=== PATIENT | male | born 1965 | race Caucasian/White ===

== ENCOUNTER 2017-02-18 14:40 | Emergency (ER) | payer SELFPAY ==
[2017-02-18 15:07] VITALS: TEMP 97.9
--- NOTE | 2017-02-18 15:49 | ED.PDOC ---
History of Present Illness - General Chief Complaint: Respiratory Problem Stated Complaint: flu like symp Time Seen by Provider: 02/18/17 14:42 Source: patient Exam Limitations: no limitations Additional Information: Darnell Flores 51 y/o male with history of cad stated that he started having nasal congestion 3 days ago with worsening productive cough no chest pains but with body aches no sob. Continue to smoke. - History of Present Illness Timing/Duration: other - 3 days ag Cough Quality/Degree: moderate, productive cough Possible Cause: occasional episodes, allergen exposure Improving Factors: nothing Worsening Factors: nothing Associated Symptoms: cough - nasal congestion Respiratory Risk Factors: no cause identified Allergies/Adverse Reactions: Allergies Morphine Allergy (Verified 02/18/17 15:01) Home Medications: Ambulatory Orders Amoxicillin [Amoxil] 500 mg PO TID #30 cap 08/19/15 Aspirin 08/19/15 Fluticasone Prop 0.05% Nasal [Flonase Nasal [place]] 1 spray BNAS DAILY #1 bottle 08/19/15 Lipitor 08/19/15 Plavix 08/19/15 Albuterol Inhaler [Ventolin Hfa Inhaler] 0 gm INH Q6HR PRN #1 inh 02/18/17 Ciprofloxacin HCl 500 mg PO BID #7 tab 02/18/17 Dextromet/Guaifenesin 600/30 T [Mucinex Dm 600/30MG] 1 tab PO BID #30 tab Ipratropium [place] (Nasal) [Ipratropium [place]] 0.06 % NA TID PRN #1 spr 02/18 Review of Systems - Review of Systems Constitutional: States: malaise EENTM: States: see HPI, nose congestion Respiratory: States: see HPI, cough Cardiology: States: no symptoms reported Gastrointestinal/Abdominal: States: no symptoms reported Genitourinary: States: no symptoms reported Musculoskeletal: States: no symptoms reported Skin: States: no symptoms reported Neurological: States: no symptoms reported Endocrine: States: no symptoms reported Hematologic/Lymphatic: States: no symptoms reported Past Medical History (General) - Patient Medical History Hx Cardiac Disorders: Yes Hx Congestive Heart Failure: No Hx Diabetes: Yes Surgical History: appendectomy, coronary bypass surgery, other - hernia repair, vein strippings - Vaccination History Hx Tetanus, Diphtheria Vaccination: No Hx Influenza Vaccination: Yes Hx Pneumococcal Vaccination: No Immunizations Up to Date: Yes - Social History Hx Tobacco Use: Yes Years Tobacco Use: 30 Cigarettes Packs Per Day: 30 Hx Alcohol Use: No Hx Substance Use: No Hx Substance Use Treatment: No Hx Depression: No Hx Physical Abuse: No Hx Emotional Abuse: No Hx Suspected Abuse: No - Activities of Daily Living Patient Lives Alone: No - - Female History Patient : No Family Medical History - Family History Mother Living Status: Still Living Hx Family Congestive Heart Failure: Yes Hx Family Hypertension: Yes Hx Cardiac Disease: Yes Hx Family Cancer: Yes - lung-sister Physical Exam - Physical Exam General Appearance: Alert, No apparent distress Eye Exam: bilateral normal ENT Exam: normal ENT inspection, hearing grossly normal, TMs normal, pharynx normal, nasal congestion - right nostril, nasal drainage Neck: non-tender, full range of motion Respiratory: chest non-tender, lungs clear, normal breath sounds, no respiratory distress Cardiovascular/Chest: normal peripheral pulses, regular rate, rhythm, no edema, no gallop, no murmur Gastrointestinal/Abdominal: normal bowel sounds, non tender, soft, no organomegaly Extremity: normal range of motion, non-tender, normal inspection Neurologic: no motor/sensory deficits, alert, normal mood/affect, oriented x 3 Skin Exam: normal color, warm/dry Lymphatic: no adenopathy Progress - EKG/XRAY/CT XRAY: chest - no acute abnormality noted Departure - Departure Clinical Impression: Acute bronchospasm Sinusitis Qualifiers: Sinusitis location: unspecified location Chronicity: acute Recurrence: not specified Qualified Code(s): J01.90 - Acute sinusitis, unspecified Time of Disposition: 16:42 Disposition: Discharge to Home or Self Care Condition: Good Departure Forms: ED Discharge - Pt. Copy, Patient Portal Self Enrollment Instructions: DI for Sinusitis, Quitting Smoking After a Heart Attack, Why It Is Important to Quit Smoking If You Have Heart Failure, Tips to Help You Stop Smoking, Serious Ways to Stop Smoking Prescriptions: Albuterol Inhaler [Ventolin Hfa Inhaler] 0 gm INH Q6HR PRN #1 inh PRN Reason: Cough Ciprofloxacin HCl 500 mg PO BID #7 tab Dextromet/Guaifenesin 600/30 T [Mucinex Dm 600/30MG] 1 tab PO BID #30 tab Ipratropium [place] (Nasal) [Ipratropium [place]] 0.06 % NA TID PRN #1 spr PRN Reason: Nasal Congestion Home Medications: Ambulatory Orders Amoxicillin [Amoxil] 500 mg PO TID #30 cap 08/19/15 Aspirin 08/19/15 Fluticasone Prop 0.05% Nasal [Flonase Nasal [place]] 1 spray BNAS DAILY #1 bottle 08/19/15 Lipitor 08/19/15 Plavix 08/19/15 Albuterol Inhaler [Ventolin Hfa Inhaler] 0 gm INH Q6HR PRN #1 inh 02/18/17 Ciprofloxacin HCl 500 mg PO BID #7 tab 02/18/17 Dextromet/Guaifenesin 600/30 T [Mucinex Dm 600/30MG] 1 tab PO BID #30 tab Ipratropium [place] (Nasal) [Ipratropium [place]] 0.06 % NA TID PRN #1 spr 02/18 Additional Instructions: NEED TO SIGN UP WITH PRIMARY MD
[2017-02-18] MEDS ORDERED: DEXAMETHASONE INJ 4 MG/ML VIAL IM ONE (15:56)
--- NOTE | 2017-02-18 16:16 | RAD ---
EXAM DESCRIPTION: Chest,1 View CLINICAL HISTORY: 51 years Male cough COMPARISON: 02/05/2014. FINDINGS: The cardiomediastinal silhouette appears unremarkable. Changes from previous sternotomy new since the previous study. No consolidating infiltrates or pleural effusions. No pneumothorax. IMPRESSION: No acute abnormality is identified. Electronically signed by: Nehemias Cerna MD 02/18/2017 4:15 PM CDT
[2017-02-18 17:08] VITALS: BP 122/74; O2SAT 96
== END 2017-02-18 17:06 | disposition home or self-care (01) ==
LOC: ER 14:40
DX: J98.01 Acute bronchospasm (principal); J01.90 Acute sinusitis, unspecified; E11.9 Type 2 diabetes mellitus without complications; F17.210 Nicotine dependence, cigarettes, uncomplicated; I25.10 Atherosclerotic heart disease of native coronary artery without angina pectoris; Z80.1 Family history of malignant neoplasm of trachea, bronchus and lung; Z79.82 Long term (current) use of aspirin; Z79.02 Long term (current) use of antithrombotics/antiplatelets; Z79.899 Other long term (current) drug therapy; Z88.6 Allergy status to analgesic agent; Z95.1 Presence of aortocoronary bypass graft
CPT/HCPCS: 71010; J1100

== ENCOUNTER 2019-11-14 22:02 | Emergency (ER) | payer SELFPAY ==
[2019-11-14] MEDS ORDERED: CHLORHEXIDINE GLUCONATE 4 % 15 ML UD TOP ONE (22:12)
[2019-11-14] MEDS ORDERED: KETOROLAC TROMETHAMINE INJ 60 MG/2 ML VIAL IM ONE (22:13)
[2019-11-14] MEDS ORDERED: traMADol HCL 50 MG TAB PO ONE (22:13)
[2019-11-14] MEDS ORDERED: TETANUS,DIPHTHERIA,PERTUSSIS 1 EA SYG IM ONE (22:14)
--- NOTE | 2019-11-14 22:17 | ED.PDOC ---
History of Present Illness - General Chief Complaint: Skin/Abrasion/Tear Time Seen by Provider: 11/14/19 22:04 Source: patient Exam Limitations: no limitations - History of Present Illness Initial Comments: 54-year-old male presents to the emergency department complaining of right hand pain and laceration. He is a otr owner operator truck driver and was working with a broken spring under the aldrich of his truck when the spring snapped and punctured the skin on the palm of his right hand. He reports that he pulled the portion of the spring out and since that time has been having pain in the hand. He is right-hand dom inant and needs the hand to shift the gears on his truck and every time he does this a causes pain. He has been taking Tylenol with temporary improvement. He is unsure when his last tetanus shot is. He denies any other injuries or complaints at this time. Pain is currently rated as 10/10 in severity and is worsened with palpation and movement. Allergies/Adverse Reactions: Allergies NO KNOWN ALLERGY Allergy (Verified 11/14/19 22:18) Home Medications: Ambulatory Orders RX: Amoxicillin [Amoxil] 1,000 mg PO BID #30 cap 06/16/18 RX: predniSONE 20 mg PO DAILY 7 Days #7 tab 06/16/18 Amoxicillin & Pot Clavulanate [Augmentin Tab] 875 mg PO BID 10 Days tab 11/14/19 RX: Tramadol HCl 50 mg PO Q6H PRN #15 tab 11/14/19 Review of Systems - Review of Systems Constitutional: Denies: chills, fever EENTM: Denies: nose congestion, throat pain Respiratory: Denies: cough, short of breath Cardiology: Denies: chest pain, palpitations Gastrointestinal/Abdominal: Denies: diarrhea, nausea, vomiting Musculoskeletal: States: joint pain, muscle pain - R hand Skin: States: other - puncture wound R palm Neurological: Denies: numbness, weakness Past Medical History (General) - Patient Medical History Hx Stroke: No Hx Cardiac Disorders: Yes Hx Congestive Heart Failure: No Hx Diabetes: No - Vaccination History Hx Tetanus, Diphtheria Vaccination: No Hx Influenza Vaccination: No Hx Pneumococcal Vaccination: No - Social History Hx Tobacco Use: Yes - 2-2.5 ppd Hx Alcohol Use: No Hx Substance Use: No Hx Substance Use Treatment: No Hx Depression: No Hx Physical Abuse: No Hx Emotional Abuse: No Hx Suspected Abuse: No - Female History Patient : No Family Medical History - Family History Mother Living Status: Still Living Hx Family Congestive Heart Failure: Yes Hx Family Hypertension: Yes Hx Cardiac Disease: Yes Hx Family Cancer: Yes - lung-sister Physical Exam - Physical Exam General Appearance: Alert, No apparent distress, Well Developed, Well Nourished Eye Exam: bilateral normal Ears, Nose, Throat: normal ENT inspection, normal pharynx Neck: supple, normal inspection Respiratory: lungs clear, normal breath sounds Cardiovascular/Chest: normal peripheral pulses, regular rate, rhythm Peripheral Pulses: radial,right: 2+, radial,left: 2+ Gastrointestinal/Abdominal: non tender, soft Extremity: normal range of motion - painful ROM R hand, non-tender - TTP over R thenar eminence Neurologic: alert, normal mood/affect, oriented x 3, other - Moves all extremities without focal deficits Skin Exam: normal color, warm/dry, other - superficial abrasion dorsal aspect R hand over the 1st metacarpal. 0.25 cm puncture wound to R thenar eminence. No active bleeding Comments: Vital Signs - 24 hr 11/14/19 22:07 Temperature 97.6 F Pulse Rate [ 67 monitor] Respiratory 20 Rate Blood Pressure 136/100 [Left Arm] O2 Sat by Pulse 95 Oximetry Progress - Progress Progress: 11/14/19 22:30 The patient was seen and evaluated in the emergency department. A right hand x- ray was obtained and was negative for any acute fracture or foreign body. The patient's wounds were cleaned with saline and Hibiclens and he was given tramadol and Toradol for pain. We discussed that I do not recommend closure as the wound is more than 10 hours old as well as it being a puncture wound this increases the chance of infection and I recommended letting the wound heal by secondary intention. The patient has voiced understanding of this. He was given follow-up instructions with Dr. Carmona for orthopedic surgery and instructed to keep the wound clean and dry and given warning signs for infection. Because instructed to return to the emergency department immediately for any significant worsening of pain, signs of infection or any other concerning signs or symptoms. The patient and his at the bedside who voice understanding and agree with the treatment plan. - Results/Orders Results/Orders: 22:30 Right hand x-ray read by myself shows no acute fracture or radiopaque foreign body. R hand XR: IMPRESSION: Soft tissue swelling of the second digit is present. No underlying acute bony abnormality. Electronically signed by: Selma Duvall MD 11/14/2019 10:45 PM [facility] Departure - Departure Clinical Impression: Puncture wound of hand, right, Right hand pain Time of Disposition: 22:33 Disposition: Discharge to Home or Self Care Condition: Good Departure Forms: ED Discharge - Pt. Copy, Patient Portal Self Enrollment Instructions: Wound Care (DC) Referrals: Ramses Carmona MD [Active Staff] - 1-5 Days Prescriptions: Amoxicillin & Pot Clavulanate [Augmentin Tab] 875 mg PO BID 10 Days tab RX: Tramadol HCl 50 mg PO Q6H PRN #15 tab PRN Reason: Pain Home Medications: Ambulatory Orders RX: Amoxicillin [Amoxil] 1,000 mg PO BID #30 cap 06/16/18 RX: predniSONE 20 mg PO DAILY 7 Days #7 tab 06/16/18 Amoxicillin & Pot Clavulanate [Augmentin Tab] 875 mg PO BID 10 Days tab 11/14/19 RX: Tramadol HCl 50 mg PO Q6H PRN #15 tab 11/14/19 Additional Instructions: Take medications as directed. Clean wound daily with soap and water and keep dressed. Call Dr. Carmona for orthopedic surgery to schedule a follow-up appointment as soon as possible. Return to the emergency department immediately for any significant worsening pain, signs of infection or other concerns.
[2019-11-14 22:19] VITALS: TEMP 97.6
[2019-11-14] MEDS ORDERED: NEOMYCIN-BACITRACIN-POLYMYXIN 0.9 GM UD TOP ONE (22:29)
[2019-11-14 22:35] VITALS: BP 134/81; O2SAT 96
--- NOTE | 2019-11-14 22:46 | RAD ---
EXAM: XR Right Hand Complete, 3 or More Views CLINICAL HISTORY: The patient is 54 years old and is Male; injury/pain TECHNIQUE: Frontal, lateral and oblique views of the right hand. COMPARISON: No relevant prior studies available. FINDINGS: BONES/JOINTS: Minimal degenerative change of the second digit is present. No acute fracture. No dislocation. SOFT TISSUES: Soft tissue swelling of the second digit is present. No radiopaque foreign body. IMPRESSION: Soft tissue swelling of the second digit is present. No underlying acute bony abnormality. Electronically signed by: Selma Duvall MD 11/14/2019 10:45 PM [facility]
== END 2019-11-14 22:37 | disposition home or self-care (01) ==
LOC: ER 22:02
DX: S61.431A Puncture wound without foreign body of right hand, initial encounter (principal); I51.9 Heart disease, unspecified; W45.8XXA Other foreign body or object entering through skin, initial encounter; Y99.0 Civilian activity done for income or pay; Y92.69 Other specified industrial and construction area as the place of occurrence of the external cause; Z87.891 Personal history of nicotine dependence
CPT/HCPCS: 73130; 90471; 90715; J1885

== ENCOUNTER 2019-11-17 22:31 | Observation (INO) | payer SELFPAY ==
[2019-11-17] MEDS ORDERED: ACETAMINOPHEN 500 MG TAB ONE (23:05)
[2019-11-17] MEDS ORDERED: PIPERACILLIN/TAZOBACTAM 3.375 GM VIAL IVPB ONE (23:06)
[2019-11-17] MEDS ORDERED: SODIUM CHLORIDE 0.9% 100ML 100 ML IVPB ONE (23:06)
[2019-11-17] MEDS ORDERED: VANCOMYCIN HCL INJ 1,000 MG VIAL IVPB ONE (23:07)
[2019-11-17] MEDS ORDERED: SODIUM CHLORIDE 0.9% 250ML 250 ML ONE (23:08)
[2019-11-17] MEDS ORDERED: SODIUM CHLORIDE 0.9% 1000ML 1,000 ML ONE (23:30)
--- NOTE | 2019-11-18 00:36 | ED.PDOC ---
History of Present Illness - General Chief Complaint: Upper Extremity Injury Stated Complaint: rt hand pain Time Seen by Provider: 11/18/19 00:31 - History of Present Illness Initial Comments: 54 yo M PMH CABG x 4 presents to ED at bedside c/o right hand pain worsening after puncture wound sustained on 11/14/19. Pt. seen and evaluated in this ED and sent home on antibiotics which patient has been taking. Pain has however worsened and he returned to the ED for re-evaluation. Denies new injury fever chills nausea vomiting diarrhea chest pain sob diaphoresis. No change in diet bowel or bladder but pain is disturbing rest. Admits smoking denies drinking admits FH HTN DM has no PMD for follow up no other c/o today. Allergies/Adverse Reactions: Allergies NO KNOWN ALLERGY Allergy (Verified 11/14/19 22:18) Home Medications: Ambulatory Orders Amoxicillin [Amoxil] 1,000 mg PO BID #30 cap 06/16/18 predniSONE 20 mg PO DAILY 7 Days #7 tab 06/16/18 Amoxicillin & Pot Clavulanate [Augmentin Tab] 875 mg PO BID 10 Days tab 11/14/19 Tramadol HCl 50 mg PO Q6H PRN #15 tab 11/14/19 Review of Systems - Review of Systems Constitutional: States: see HPI EENTM: States: see HPI Respiratory: States: see HPI Cardiology: States: see HPI Gastrointestinal/Abdominal: States: see HPI Genitourinary: States: see HPI Musculoskeletal: States: see HPI Skin: States: see HPI Neurological: States: see HPI Endocrine: States: see HPI Hematologic/Lymphatic: States: see HPI All other Systems: Reviewed and Negative Past Medical History (General) - Patient Medical History Hx Seizures: No Hx Stroke: No Hx Dementia: No Hx Asthma: No Hx of COPD: No Hx Cardiac Disorders: Yes Hx Congestive Heart Failure: No Hx Pacemaker: No Hx Hypertension: No Hx Thyroid Disease: No Hx Diabetes: No Hx Gastroesophageal Reflux: No Hx Renal Disease: No Hx Cancer: No Hx of HIV: No Hx Hepatitis C: No Hx MRSA: No - Vaccination History Hx Tetanus, Diphtheria Vaccination: No Hx Influenza Vaccination: No Hx Pneumococcal Vaccination: No - Social History Hx Tobacco Use: Yes - 2-2.5 ppd Hx Alcohol Use: No Hx Substance Use: No Hx Substance Use Treatment: No Hx Depression: No Hx Physical Abuse: No Hx Emotional Abuse: No Hx Suspected Abuse: No - Female History Patient : No Family Medical History - Family History Mother Living Status: Still Living Hx Family Congestive Heart Failure: Yes Hx Family Hypertension: Yes Hx Cardiac Disease: Yes Hx Family Cancer: Yes - lung-sister Physical Exam - Physical Exam General Appearance: No apparent distress Eyes, Ears, Nose, Throat Exam: normal ENT inspection Neck: non-tender, full range of motion Cardiovascular/Respiratory: regular rate, rhythm Abdominal Exam: non-tender, no organomegaly Back Exam: normal inspection Shoulder Exam: normal inspection Elbow/Forearm Exam: normal inspection Wrist Exam: normal inspection Hand Exam: infection - Right thenar eminence is tender warm indurated surrounding puncture wound, soft tissue tenderness, swelling Neuro/Tendon: normal motor functions, normal tendon functions, other - exam limited secondary to pain Mental Status: alert, oriented x 3 Skin Exam: other - tenderness erythema to right thenar eminance Progress - Progress Progress: A/P-R Hand Cellulitis, Puncture Wound-iv bolus tylenol cbc cmp esr crp xr hand CT Hand blood cultures zosyn vancomycin ADMIT failed outpatient antibiotics 11/18/19 00:32 Laboratory Tests 11/17/19 11/17/19 11/17/19 23:00 23:00 23:00 WBC 7.4 RBC 5.12 Hgb 15.6 Hct 45.3 MCV 88.4 MCH 30.4 MCHC 34.4 RDW 14.2 Plt Count 220 MPV 9.1 Absolute Neuts (auto) 2.40 Absolute Lymphs (auto) 3.80 H Absolute Monos (auto) 0.70 Absolute Eos (auto) 0.40 Absolute Basos (auto) 0.10 Neutrophils % 32.0 L Lymphocytes % 51.4 H Monocytes % 10.1 H Eosinophils % 5.4 H Basophils % 1.1 ESR 4 Sodium 138 Potassium 3.7 Chloride 101 Carbon Dioxide 28 Anion Gap 12.7 BUN 11 Creatinine 0.89 BUN/Creatinine Ratio 12.4 Random Glucose 117 H Serum Osmolality 276.1 Calcium 8.9 Total Bilirubin 0.5 AST 22 ALT 15 Alkaline Phosphatase 65 C-Reactive Protein 2.7 H Serum Total Protein 7.0 Albumin 4.2 Globulin 2.8 Albumin/Globulin Ratio 1.5 11/18/19 00:46 Reporting MD: Rico Loza Germination Worker date: Dictation date: EXAM DESCRIPTION: Hand,Right 3 Views CLINICAL HISTORY: 54 years Male, SPRING PUNCTURED HIS HAND, PAIN AROUND THUMB AREA PALMAR ASPECT COMPARISON: None. FINDINGS: No evidence for an acute fracture of the right hand. No dislocation. Surrounding soft tissues are unremarkable. No radiopaque foreign body. IMPRESSION: No evidence for an acute fracture of the right hand. Electronically signed by: Rico Loza MD 11/18/2019 12:02 AM [facility] CENTER MANAGER - [id number] Reporting MD: Blue Lujan Germination Worker date: Dictation date: CT right hand with contrast on 11/18/2019 CLINICAL INDICATION: Puncture wound at base of thumb, pain TECHNIQUE: Multiple axial images are obtained throughout the right hand and wrist following the administration of IV contrast. 90 mL of Optiray 320 contrast was measured intravenously. Sagittal and coronal reformatted images are also performed and reviewed. This exam was performed according to our departmental dose-optimization program, which includes automated exposure control, adjustment of the mA and/or kV according to patient size and/or use of iterative reconstruction technique. Total DLP is 232.27 mGy*cm. COMPARISON: Right hand x-ray from 11/14/2019 FINDINGS: There is no air in the soft tissues to suggest fasciitis. There is no radiopaque foreign body. Visualized joints are well aligned. There are no acute fracture lines. No fluid collection to suggest abscess is noted. No mass or pathologic contrast enhancement is noted. Cannot exclude mild cellulitis in the palmar subcutaneous tissues. Please correlate with physical exam. IMPRESSION: Cannot exclude a mild cellulitis in the palmar soft tissues of the hand with otherwise no acute abnormality. Electronically signed by: Blue Lujan 11/18/2019 12:54 AM COMMERCIAL CENTER MANAGER 11/18/19 01:11 Tobias Reynolds Accepts Departure - Departure Clinical Impression: Puncture wound, Cellulitis of right hand, Right hand pain Disposition: Admit Patient Condition: Fair Departure Forms: ED Discharge - Pt. Copy, Patient Portal Self Enrollment Instructions: DI for Arm Pain Home Medications: Ambulatory Orders Amoxicillin [Amoxil] 1,000 mg PO BID #30 cap 06/16/18 predniSONE 20 mg PO DAILY 7 Days #7 tab 06/16/18 Amoxicillin & Pot Clavulanate [Augmentin Tab] 875 mg PO BID 10 Days tab 11/14/19 Tramadol HCl 50 mg PO Q6H PRN #15 tab 11/14/19
--- NOTE | 2019-11-18 01:33 | HP ---
SUPERVISING PHYSICIAN: Ravi Valverde M.D. CHIEF COMPLAINT: Right hand pain. HISTORY OF PRESENT ILLNESS: This is a 54 year-old male who came to the Emergency Room with his with complaints of right hand pain. He was actually seen on the and he sustained a wound where he was working on his truck and some sort of spring penetrated his right hand. He was given some Augmentin as well as a tetanus shot and was discharged at that time. He returned to the Emergency Room because the pain worsened and he wanted it reevaluated. He had no complaints of chest pain, chills, fever, nausea, vomiting or diarrhea. He is unable to shift gears in his truck and the pain is much worse. The area is more reddened and swollen. In the Emergency Room, his initial vital signs were temperature 96.4, heart rate 70, blood pressure 145/90, respiratory rate 18, O2 saturation 94% on room air. Laboratory studies were done. WBCs were 7,400 with hemoglobin 15.6, hematocrit 45.3 and ESR was 4. Chemistries were all within normal limits except his C reactive protein was elevated at 2.7, glucose was slightly elevated at 117. Blood cultures were obtained and sent off. Hand x-ray from the showed soft tissue swelling in the second digit is present with no underlying acute abnormality. He was given some fluids in the Emergency Room as well as some vancomycin, Zosyn and Rocephin. He was given some Ketorolac for pain. He was placed in observation on the Medical/Surgical floor. PAST MEDICAL HISTORY: 1. Coronary artery disease. PAST SURGICAL HISTORY: 1. Coronary artery bypass graft times 4 vessels. 2. Appendectomy. 3. Hernia repair. 4. Varicose vein repair. 5. Right jaw surgery. 6. Surgery to his right leg due to trauma. OUTPATIENT MEDICATIONS: 1. Aspirin. ALLERGIES: FAMILY HISTORY: SOCIAL HISTORY: He lives in [place]. He drives a truck. He is . He smokes 1 to 2 packs of cigarettes daily. Denies any ETOH or illicit drug use. REVIEW OF SYSTEMS: GENERAL: Negative for fever, fatigue or weight changes. HEENT: Negative for sinus symptoms, ear pain, vision changes or sore throat. RESPIRATORY: Negative for wheezing, coughing or shortness of breath. CARDIAC: Negative for chest pain, palpitations or tachycardia. GASTROINTESTINAL: Negative for nausea, vomiting, diarrhea or constipation. MUSCULOSKELETAL: Positive for right hand pain. He is unable to open his hand. Negative for arthralgias or myalgias. SKIN: As per History of Present Illness. NEUROLOGIC: Negative for headaches, dizziness or seizures. PHYSICAL EXAMINATION: VITAL SIGNS: Temperature 97.4, heart rate 71, blood pressure 125/79, respiratory rate 16, O2 saturation 94% on room air. GENERAL: This is a 54 year-old male patient who is lying in his hospital bed. He is in no acute distress. HEENT: Normocephalic, atraumatic. Pupils are equal and reactive. Oropharynx is clear. NECK: Supple without mass. RESPIRATORY: Essentially clear to auscultation bilaterally. CHEST: There is equal rise and fall of the chest with inspiration and expiration. CARDIOVASCULAR: Regular rate and rhythm. GASTROINTESTINAL: Abdomen is soft, nondistended, nontender. Bowel sounds are positive. EXTREMITIES: He has swelling along the right thenar eminence. It is tender and warm. There is a small amount of induration around the puncture wound. There is no fluctuance or drainage noted. NEUROLOGIC: Awake, alert and oriented times three. It is difficult to assess the neurological status of his right hand due to pain. Cranial nerves II-XII are grossly intact as tested. LABORATORY: Labs and films are as per the History of Present Illness. ASSESSMENT: 1. Cellulitis of the right hand failed outpatient treatment with concerns for developing sepsis. 2. Coronary artery disease. 3. Poor medical compliance. 4. Tobacco abuse. PLAN: The patient has been placed in observation. We will continue on his vancomycin and Zosyn as previously ordered. I will discontinue his Rocephin. We discussed tobacco cessation and he refused. He also admitted that he does not have a primary care physician. He was not sure if he wanted to see someone in followup. I have given him some Tylenol #3 for pain. I will do lab and an x-ray in the morning. Will continue to monitor him closely and follow as needed. #[id number] [facility]
[2019-11-18] MEDS ORDERED: KETOROLAC TROMETHAMINE INJ 30 MG/ML VIAL IV ONE (02:25)
[2019-11-18] MEDS ORDERED: ACETAMINOPHEN 325 MG TAB PO PRN (02:26)
[2019-11-18] MEDS ORDERED: SODIUM CHLORIDE 0.9% (FLUSH) 10 ML SYG IV PRN (02:26)
[2019-11-18] MEDS ORDERED: MORPHINE SULFATE INJ 10 MG/ML VIAL IV PRN (02:26)
[2019-11-18] MEDS ORDERED: ONDANSETRON INJ 4 MG/2 ML VIAL IV PRN (02:26)
[2019-11-18] MEDS ORDERED: IV SET AND CAP CHANGE INJ INJ SCH (02:30)
[2019-11-18] MEDS ORDERED: SODIUM CHLORIDE 0.9% 250ML 250 ML ONE ×2 (08:53→19:03)
[2019-11-18] MEDS ORDERED: SODIUM CHL 0.9% 50ML MIN-BAG+ 50 ML IVPB ONE (08:53)
[2019-11-18] MEDS ORDERED: cefTRIAXone SODIUM 1 GM VIAL ONE (08:54)
[2019-11-18] MEDS ORDERED: VANCOMYCIN HCL INJ 1,000 MG VIAL IVPB ONE ×2 (08:54→19:03)
[2019-11-18] MEDS ORDERED: cefTRIAXone SODIUM 1 GM in SODIUM CHL 0.9% 50ML MIN-BAG+ 50 ML IVPB SCH (09:00)
[2019-11-18] MEDS ORDERED: VANCOMYCIN PER PHARMACY IVPB SCH (09:00)
[2019-11-18] MEDS: VANCOMYCIN HCL INJ 1,000 MG in SODIUM CHLORIDE 0.9% 250ML 250 ML IVPB SCH ×2 (09:47→20:55)
[2019-11-18] MEDS ORDERED: IBUPROFEN 400 MG TAB PO PRN (12:59)
[2019-11-18] MEDS: ACETAMINOPHEN W/COD #3 TAB 1 EA TAB PO PRN ×2 (13:42→17:45)
[2019-11-18] MEDS ORDERED: PIPERACILLIN/TAZOBACTAM 3.375 GM VIAL IVPB ONE ×2 (17:33→19:05)
[2019-11-18] MEDS ORDERED: SODIUM CHLORIDE 0.9% 100ML 100 ML IVPB ONE (17:33)
[2019-11-18] MEDS: PIPERACILLIN/TAZOBACTAM 3.375 GM in SODIUM CHLORIDE 0.9% 100ML 100 ML IVPB SCH ×2 (17:49→23:48)
[2019-11-18] MEDS ORDERED: SODIUM CHL 0.9% 100ML MINI-BAG 100 ML IVPB ONE (19:05)
[2019-11-19] MEDS ORDERED: SODIUM CHL 0.9% 100ML MINI-BAG 100 ML IVPB ONE (01:41)
[2019-11-19] MEDS ORDERED: PIPERACILLIN/TAZOBACTAM 3.375 GM VIAL IVPB ONE ×3 (01:45→16:37)
[2019-11-19] MEDS: PIPERACILLIN/TAZOBACTAM 3.375 GM in SODIUM CHLORIDE 0.9% 100ML 100 ML IVPB SCH ×3 (05:19→16:53)
[2019-11-19] MEDS ORDERED: SODIUM CHLORIDE 0.9% 250ML 250 ML ONE ×2 (09:26→16:38)
[2019-11-19] MEDS ORDERED: VANCOMYCIN HCL INJ 1,000 MG VIAL IVPB ONE ×2 (09:26→16:38)
[2019-11-19] MEDS: VANCOMYCIN HCL INJ 1,000 MG in SODIUM CHLORIDE 0.9% 250ML 250 ML IVPB SCH ×2 (09:30→17:59)
[2019-11-19] MEDS ORDERED: SODIUM CHLORIDE 0.9% 100ML 100 ML IVPB ONE ×2 (10:59→16:37)
[2019-11-19 18:09] VITALS: BP 130/70; TEMP 98.6; O2SAT 99
--- NOTE | 2019-11-19 21:48 | DS ---
SUPERVISING PHYSICIAN: Ravi Valverde M.D. DISCHARGE DIAGNOSIS: 1. Cellulitis of the right hand failed outpatient treatment with concerns for developing sepsis. 2. Coronary artery disease. 3. Poor medical compliance. 4. Tobacco abuse. HISTORY OF PRESENT ILLNESS: This is a 54 year-old male who came to the Emergency Room with his with complaints of right hand pain. He was actually seen on the and he sustained a wound where he was working on his truck and some sort of spring penetrated his right hand. He was given some Augmentin as well as a tetanus shot and was discharged at that time. He returned to the Emergency Room because the pain worsened and he wanted it reevaluated. He had no complaints of chest pain, chills, fever, nausea, vomiting or diarrhea. He is unable to shift gears in his truck and the pain is much worse. The area is more reddened and swollen. In the Emergency Room, his initial vital signs were temperature 96.4, heart rate 70, blood pressure 145/90, respiratory rate 18, O2 saturation 94% on room air. Laboratory studies were done. WBCs were 7,400 with hemoglobin 15.6, hematocrit 45.3 and ESR was 4. Chemistries were all within normal limits except his C reactive protein was elevated at 2.7, glucose was slightly elevated at 117. Blood cultures were obtained and sent off. Hand x-ray from the showed soft tissue swelling in the second digit is present with no underlying acute abnormality. He was given some fluids in the Emergency Room as well as some vancomycin, Zosyn and Rocephin. He was given some Ketorolac for pain. He was placed in observation on the Medical/Surgical floor. HOSPITAL COURSE: The patient was placed in observation. He was continued on vancomycin and Zosyn. Rocephin was discontinued. We discussed tobacco use cessation but he has refused. Today, I had actually talked to him about 1 additional day of IV antibiotics, but he said he would like to be discharged today, if possible, due to costs. His puncture wound to his right hand is much improved. The patient is able to make a fist. There is no tenderness to palpation. No redness or edema. He has not had pain medications for about 12 hours. In regards to his discharge today, he will get an additional dose of vancomycin as well as the Zosyn and once his next 2 doses are complete he will be discharged from the hospital with close followup. LABORATORY: Followup CBC is unremarkable. Electrolytes are also within normal limits. Preliminary blood cultures show no growth after 24 hours. Radiology reports are per the History of Present Illness. DISCHARGE PLAN: The patient will be discharged home in stable condition. He is to resume his previous diet and increase his activity as tolerated. He is to continue his aspirin as well as his Augmentin that he was previously prescribed. He is to followup with me on 11/28/19 at 6:30 PM for quick evaluation of his hand. He is to return to the hospital for any problems or complications with his hand. Wound care instructions were given by staff. DISCHARGE MEDICATIONS: 1. Aspirin. 2. Augmentin. #[id number] [facility]
== END 2019-11-19 19:42 | disposition home or self-care (01) ==
LOC: ER 22:31 → MS 11-18 01:32
PROVIDERS: ADMIT Nurse Practitioner Acute Care; ATTEND Nurse Practitioner Acute Care
DX: L03.113 Cellulitis of right upper limb (principal); M79.641 Pain in right hand; I25.10 Atherosclerotic heart disease of native coronary artery without angina pectoris; F17.210 Nicotine dependence, cigarettes, uncomplicated; Z91.19 Patient's noncompliance with other medical treatment and regimen; Z79.82 Long term (current) use of aspirin; Z95.1 Presence of aortocoronary bypass graft
CPT/HCPCS: 96366 ×2; 96365; 96375; 96376 ×2; J0696; J1885; J2270; J2543 ×6; J7030; J7050 ×12; J3370 ×5; 80048; 80053; 36415; 86140; 85025 ×2; 87040 ×2; 83735; 85651; 80202; 94760 ×3; 99406; 99285; G0378